=== PATIENT | male | born 1945 | race Caucasian/White ===

== ENCOUNTER 2021-04-25 09:54 | Emergency (ER) | payer MEDICARE, SELFPAY ==
--- NOTE | ~2021-04-25 | CT_ITS ---
CT/CT abdomen pelvis wo con IMPRESSION: Mild to moderate right-sided hydroureteronephrosis secondary to a 2 mm calculus within the distal right ureter. Fleischner guidelines were followed. EXAMINATION: CT ABDOMEN AND PELVIS WITHOUT CONTRAST CLINICAL INFORMATION: 76-year-old male with right lower quadrant pain. COMPARISON: None TECHNIQUE: Multidetector volumetric imaging was performed from the superior aspect of the liver through the pubic symphysis. Sagittal and coronal reformatted images were obtained on the technologist's workstation. This CT examination was performed using dose optimization techniques as appropriate, variously including the following: *Automated exposure control *Adjustment of mA and/or kV according to patient size (this includes techniques or standardized protocols for targeted exams where dose is matched to indication/reason for exam; i.e. extremities or head) *Use of iterative reconstruction technique DLP: 605 mGy-cm FINDINGS: visualized lung bases demonstrate mild dependent atelectasis. There is 1.3 cm cystic focus within the posterior left lower lobe. Coronary artery calcifications are present. The liver demonstrates normal size, contour and attenuation. The gallbladder is normal in appearance. The pancreas, spleen and adrenal glands are unremarkable. There is mild to moderate right-sided hydroureteronephrosis secondary to a 2 mm calculus within the distal right ureter. There is mild right-sided perinephric stranding. No other renal calculi are present within the right or left kidney. There is no left-sided hydronephrosis. Small hiatal hernia. Normal caliber loops of small and large bowel. Normal appendix. Normal caliber abdominal aorta which demonstrates moderate atherosclerotic disease. No retroperitoneal lymphadenopathy. The bladder is decompressed but grossly unremarkable. The prostate gland is mildly enlarged measuring 5.2 cm in maximum transverse dimension. There is no gross free pelvic fluid. Small fat-containing left inguinal hernia. No inguinal lymphadenopathy. No acute osseous abnormality.
[2021-04-25 10:01] VITALS: BP 157/105; PULSE 94; RESP 20; TEMP 35.6; O2SAT 100; BMI 26.6
--- NOTE | 2021-04-25 10:05 | ECG_ITS ---
Test Reason : dehydration Blood Pressure : / mmHG Vent. Rate : 087 BPM Atrial Rate : 087 BPM P-R Int : 166 ms QRS Dur : 062 ms QT Int : 370 ms P-R-T Axes : 068 028 044 degrees QTc Int : 445 ms Normal sinus rhythm with sinus arrhythmia Low voltage QRS Borderline ECG When compared with ECG of 24-MAY-2010 09:04, Vent. rate has increased BY 29 BPM Referred By: Adele Maldonado Electronically Signed By:ELIZABETH RICE MD
--- NOTE | 2021-04-25 10:23 | ED_ITS ---
HPI - Abdominal Pain General Chief Complaint: Abdominal Pain Stated Complaint: abd, n/v Time Seen by Provider: 04/25/21 10:05 Source: patient and EMS Mode of arrival: EMS Limitations: no limitations History of Present Illness HPI narrative: 76-year-old male came in for evaluation of abdominal pain. Abdominal pain started at 04:00 woke the patient up from sleep, pain is in right lower quadrant with no radiation described as constant severe 10/10 pain associated with nausea and vomiting no diarrhea, patient declined seeing blood in the urine, no dysuria, no urinary frequency. No aggravating or relieving factor, never had similar pain in the past. No history of kidney stones, no past surgical history. Past medical history significant for depression and hypertension and prostatic enlargement. Related Data Previous Rx's Medication Instructions Recorded ondansetron 4 mg disintegrating 4 mg PO BEDTIME PRN 3 Days #10 tab 04/25/21 tablet oxycodone 5 mg tablet 5 mg PO Q8H PRN #10 tab 04/25/21 Allergies Allergy/AdvReac Type Severity Reaction Status Date / Time No Known Allergies Allergy Unverified 11/22/19 17:14 Review of Systems Review of Systems All other systems are reviewed and are negative Constitutional: Reports as per HPI and Reports no additional constitutional complaints Eyes: Reports as per HPI and Reports no additional eye complaints Reports system reviewed and no additional complaints, except as documented Cardiovascular: Reports as per HPI and Reports no additional cardiovascular complaints Respiratory: Reports as per HPI and Reports no additional respiratory complaints Gastrointestinal: Reports as per HPI and Reports no additional gastrointestinal complaints Genitourinary: Reports no additional female genitourinary complaints Musculoskeletal: Reports no additional musculoskeletal complaints Skin/Breast: Reports system reviewed and no additional complaints, except as docu Psychiatric: Reports no additional psychiatric complaints Endocrine: Reports no additional endocrine complaints Hematologic/Lymphatic: Reports no additional hematologic/lymphatic complaints Allergic/Immunologic: Reports no additional allergic/immunologic complaints Reports system reviewed and no additional complaints, except as documented and Reports Abnormal speech present [facility] Social History Social History Advance Directives: Yes Advance Directives Information Provided: No Advance Directives on File: No Physical Exam ED Vital Signs: Vital Signs - 24 hr 04/25/21 10:01 04/25/21 10:50 Temperature 96.1 F L Pulse Rate 94 87 Respiratory Rate 20 20 Blood Pressure 157/105 H 155/88 H Pulse Oximetry 100 100 BMI result Body Mass Index 26.6 Vital signs have been reviewed as appeared to be correct. Blood pressure eleva jose angel. Heart rate normal. Respiration rate normal. Temperature normal. Oxygen saturation normal. Appearance: Alert. Oriented X3. acute distress due to severe right-sided abd ominal pain. Head: Normal external exam. Normocephalic. Atraumatic. No Leslie signs noted. No raccoon eyes noted Eyes: PERRLA. EOMI. Conjunctiva and sclera normal. Eyelids normal. ENT: TM's Normal. Pharynx normal. Uvula midline. Moist mucous membranes. No trismus noted. No drooling noted. No muffled voice noted. Neck: Normal inspection. Neck supple. FROM. No adenopathy. Thyroid Normal. No m eningeal signs. No neck mass noted. CVS: Normal heart rate and rhythm. Heart sound normal. No murmurs noted. Pulses normal throughout. Respiratory: No respiratory distress. Painless inspiration. Breath sounds normal. No wheezes/rales/rhonchi noted. Chest nontender. No accessory muscle usage noted or decreased air movement noted. Abdomen: Soft and nontender. Bowel sounds normal in all 4 quadrants. No distention noted. No organomegaly noted. No visible injury noted. Back: No CVA tenderness. Full range of motion noted. Skin: Skin warm and dry. Normal skin color. Normal skin turgor. No r ashes/lesions/lacerations noted. Extremities: No lower extremity edema. Extremities exhibit normal range of motion. Extremities nontender. Neuro: Oriented X 3. Cranial nerve exam: II-XII are grossly intact No motor deficit. No sensory deficit. Reflexes normal. Course Course Course Narrative: Assessment and plan. 76-year-old male came in for abdominal pain and, physical exam/CT of the abdomen pelvis consistent with kidney stone renal. Patient now is more after was given morphine and Toradol in the emergency department, urine does not appear infected infected, instructed to drink plenty of fluid, will discharge the patient on pain medication and antinausea medication with follow-up with urologist. MDM - Abdominal Pain Lab Data Attestation: I reviewed the patient's lab results. Result diagrams: 04/25/21 11:09 04/25/21 11:09 Labs: Lab Results 04/25/21 04/25/21 04/25/21 Range/Units 11:09 11:09 11:09 WBC 9.7 (4.8-10.8) X10*3/uL RBC 5.20 (4.60-5.80) X10*6/uL Hgb 15.4 (14.0-18.0) g/dl Hct 45.8 (42.0-52.0) % MCV 88.1 (80.0-98.0) fL MCH 29.6 (27.0-33.0) pg MCHC 33.6 (31.0-36.0) g/dl RDW 13.1 (11.0-16.0) % Plt Count 248 (160-400) X10*3/uL MPV 9.0 L (9.4-12.4) fL Immature Gran % (Auto) 0.4 (0.0-0.4) % Neut % (Auto) 86.6 H (45-73) % Lymph % (Auto) 8.4 L (20-40) % [place] % (Auto) 3.9 (2-11) % Eos % (Auto) 0.3 (0-4) % Baso % (Auto) 0.4 (0-2) % Lymph # (Auto) 0.8 L (1.2-4.9) X10*3/uL [place] # (Auto) 0.4 (0.1-1.2) X10*3/uL Eos # (Auto) 0.0 (0.0-0.4) X10*3/uL Baso # (Auto) 0.0 (0.0-0.2) X10*3/uL Abs Immat Gran (auto) 0.04 H (0.00-0.03) X10*3/uL Absolute Neuts (auto) 8.4 H (2.0-8.3) x10*3/uL Absolute Nucleated RBC 0.000 (0.0-0.012) X10*3/uL Nucleated RBC % (auto) 0.0 (0.0-0.2) /100WBC Sodium 138 (135-145) mmol/L Potassium 4.9 (3.3-5.1) mmol/L Chloride 107 (96-108) mmol/L Carbon Dioxide 18 L (22-29) mmol/L Anion Gap 18 (12-20) BUN 21 H (9-16) mg/dL Creatinine 1.37 (0.5-1.4) mg/dL Estim Creat Clear Calc 50.3 Estimated GFR 51 Random Glucose 125 H (60-115) mg/dL Calcium 9.4 (8.4-10.2) mg/dL Magnesium 1.9 (1.6-2.6) mg/dL Total Bilirubin 0.5 (0.0-1.0) mg/dL Direct Bilirubin 0.2 (0.0-0.5) mg/dL AST 16 (5-37) U/L ALT 17 (0-40) U/L Alkaline Phosphatase 65 (39-117) U/L Troponin I High Sens < 3.5 (<3.5-35.0) ng/L B-Natriuretic Peptide (<100) pg/mL Total Protein 6.7 (6.5-8.0) g/dL Albumin 4.3 (3.5-5.0) g/dL Lipase 31 (8-78) U/L Urine Color Urine Appearance Urine pH (5.0-8.0) Ur Specific [place] (1.005-1.025) Urine Protein (NEG-TRACE) MG/DL Urine Glucose (UA) (NEG) MG/DL Urine Ketones (NEG) MG/DL Urine Blood (NEG) Urine Nitrite (NEG) Ur Leukocyte Esterase (NEG) Urine RBC (0) /HPF Urine WBC (0-4) /HPF Ur Squamous Epith Cells /LPF Urine Bacteria /LPF Urine Mucus /LPF COVID-19 ([place]) (Negative) COVID-19 Clin Com 04/25/21 04/25/21 04/25/21 Range/Units 11:09 11:09 12:03 WBC (4.8-10.8) X10*3/uL RBC (4.60-5.80) X10*6/uL Hgb (14.0-18.0) g/dl Hct (42.0-52.0) % MCV (80.0-98.0) fL MCH (27.0-33.0) pg MCHC (31.0-36.0) g/dl RDW (11.0-16.0) % Plt Count (160-400) X10*3/uL MPV (9.4-12.4) fL Immature Gran % (Auto) (0.0-0.4) % Neut % (Auto) (45-73) % Lymph % (Auto) (20-40) % [place] % (Auto) (2-11) % Eos % (Auto) (0-4) % Baso % (Auto) (0-2) % Lymph # (Auto) (1.2-4.9) X10*3/uL [place] # (Auto) (0.1-1.2) X10*3/uL Eos # (Auto) (0.0-0.4) X10*3/uL Baso # (Auto) (0.0-0.2) X10*3/uL Abs Immat Gran (auto) (0.00-0.03) X10*3/uL Absolute Neuts (auto) (2.0-8.3) x10*3/uL Absolute Nucleated RBC (0.0-0.012) X10*3/uL Nucleated RBC % (auto) (0.0-0.2) /100WBC Sodium (135-145) mmol/L Potassium (3.3-5.1) mmol/L Chloride (96-108) mmol/L Carbon Dioxide (22-29) mmol/L Anion Gap (12-20) BUN (9-16) mg/dL Creatinine (0.5-1.4) mg/dL Estim Creat Clear Calc Estimated GFR Random Glucose (60-115) mg/dL Calcium (8.4-10.2) mg/dL Magnesium (1.6-2.6) mg/dL Total Bilirubin (0.0-1.0) mg/dL Direct Bilirubin (0.0-0.5) mg/dL AST (5-37) U/L ALT (0-40) U/L Alkaline Phosphatase (39-117) U/L Troponin I High Sens (<3.5-35.0) ng/L B-Natriuretic Peptide 42 (<100) pg/mL Total Protein (6.5-8.0) g/dL Albumin (3.5-5.0) g/dL Lipase (8-78) U/L Urine Color YELLOW Urine Appearance CLEAR Urine pH 8.5 H (5.0-8.0) Ur Specific [place] 1.015 (1.005-1.025) Urine Protein NEG (NEG-TRACE) MG/DL Urine Glucose (UA) NEG (NEG) MG/DL Urine Ketones NEG (NEG) MG/DL Urine Blood 1+ H (NEG) Urine Nitrite NEG (NEG) Ur Leukocyte Esterase NEG (NEG) Urine RBC 1-4 (0) /HPF Urine WBC 0 (0-4) /HPF Ur Squamous Epith Cells TRACE /LPF Urine Bacteria NONE /LPF Urine Mucus TRACE /LPF COVID-19 ([place]) Negative (Negative) COVID-19 Clin Com See Note Imaging Data CT scan - abdomen: Attestation: I personally reviewed and interpreted this imaging study as follows: Radiologist's impression: Mild to moderate right-sided hydroureteronephrosis secondary to a 2 mm calculus within the distal right ureter.? ? ECG Data Attestation: I personally reviewed and interpreted this ECG as follows: Interpretation: Normal sinus rhythm at 80 70 beats per minutes, normal intervals, no ST-T changes. Discharge Plan Discharge Clinical Impression: Calculus of kidney Patient Disposition: Home, Self-Care Instructions: Kidney Stones (ED) Additional Instructions: Drink plenty of fluids. Use anti nausea medication and pain medication as prescribed. Make your own appointment with the urologist. Return if worsening of symptoms. Prescriptions: New oxycodone 5 mg tablet 5 mg PO Q8H PRN (Reason: pain) Qty: 10 0RF ondansetron 4 mg tablet,disintegrating 4 mg PO BEDTIME PRN (Reason: nausea and vomiting) 3 Days Qty: 10 0RF Referrals: Mendoza Santoyo MD [Physician] - 2 days
[2021-04-25] MEDS: Morphine Sulfate 2 MG/ML CARTRIDGE IVPUSH (10:26)
[2021-04-25] MEDS: 0.9 % Sodium Chloride 1,000 ML 999 ML IV (10:27)
--- NOTE | 2021-04-25 10:39 | PC.NURSE ---
Pt arrives by amb cc 11/14 RLQ abdominal pain. pt very tense and restless during triage. MD notified. Pain meds administered per MAY. Pt provided with call ortega. belongings within reach.
[2021-04-25 10:50] VITALS: BP 155/88; PULSE 87; RESP 20; O2SAT 100
[2021-04-25 11:15] LABS: MANUAL DIFF FLAG NO
[2021-04-25 11:17] LABS: Basophils Percent Auto 0.4 % (0-2); Eosinophils Percent Auto 0.3 % (0-4); Hematocrit 45.8 % (42.0-52.0); Hemoglobin 15.4 g/dl (14.0-18.0); Imm Gran Abs Auto 0.04 X10*3/uL (0.00-0.03); Imm Gran Pct Auto 0.4 % (0.0-0.4); Lymphocytes Absolute Auto 0.8 X10*3/uL (1.2-4.9); Lymphocytes Percent Auto 8.4 % (20-40); Mean Corpuscular HGB Conc 33.6 g/dl (31.0-36.0); Mean Corpuscular Hemoglobin 29.6 pg (27.0-33.0); Mean Corpuscular Volume 88.1 fL (80.0-98.0); Monocytes Absolute Auto 0.4 X10*3/uL (0.1-1.2); Monocytes Percent Auto 3.9 % (2-11); Neutrophils Absolute Auto 8.4 x10*3/uL (2.0-8.3); Neutrophils Percent Auto 86.6 % (45-73); Platelet Count 248 X10*3/uL (160-400); Red Cell Distribution Width 13.1 % (11.0-16.0); White Blood Count 9.7 X10*3/uL (4.8-10.8)
[2021-04-25 11:32] LABS: COVID-19 Test Negative (Negative)
[2021-04-25 11:38] LABS: Alanine Aminotransferase 17 U/L (0-40); Albumin Level 4.3 g/dL (3.5-5.0); Alkaline Phosphatase 65 U/L (39-117); Anion Gap 18 (12-20); Aspartate Amino Transferase 16 U/L (5-37); Bilirubin Direct 0.2 mg/dL (0.0-0.5); Bilirubin Total 0.5 mg/dL (0.0-1.0); Blood Urea Nitrogen 21 mg/dL (9-16); Calcium 9.4 mg/dL (8.4-10.2); Carbon Dioxide 18 mmol/L (22-29); Chloride 107 mmol/L (96-108); Creatinine Clr Calc Pharmacy 50.3; Estimated Glomerular Filt Rate 51; Glucose Random 125 mg/dL (60-115); Lipase 31 U/L (8-78); Magnesium 1.9 mg/dL (1.6-2.6); Potassium 4.9 mmol/L (3.3-5.1); Sodium 138 mmol/L (135-145); Total Protein 6.7 g/dL (6.5-8.0)
[2021-04-25 11:39] LABS: B Type Natriuretic Peptide 42 pg/mL (<100); Troponin-I High Sensitivity < 3.5 ng/L (<3.5-35.0)
[2021-04-25 12:12] LABS: Appearance Urine CLEAR; Color Urine YELLOW; Glucose Urine UA NEG (NEG); Leukocyte Esterase Urine NEG (NEG); Nitrite Urine NEG (NEG); PH 8.5 (5.0-8.0); Specific Gravity - Urine 1.015 (1.005-1.025); UACC Culture Trigger NO; Urine Blood 1+ (NEG); Urine Ketones NEG (NEG); Urine Protein NEG (NEG-TRACE)
[2021-04-25 12:21] LABS: Mucus Urine TRACE /LPF; Squamous Epithelial Cell Urine TRACE /LPF; WBC Urine 0 /HPF (0-4)
== END 2021-04-25 13:27 | disposition home or self-care (01) ==
PROVIDERS: Emergency Provider Emergency Medicine
DX: N13.2 Hydronephrosis with renal and ureteral calculous obstruction (principal); R11.2 Nausea with vomiting, unspecified; Z20.822 Contact with and (suspected) exposure to COVID-19
CPT/HCPCS: 36415; 74176; 80048; 80076; 81001; 83690; 83735; 83880; 84484; 85025; 87635; 93005; 96361; 96374; 99284; 99285; J2270

== ENCOUNTER 2021-04-27 10:48 | Inpatient (IN) | payer MEDICARE, SELFPAY ==
--- NOTE | ~2021-04-27 | US_ITS ---
EXAMINATION: US RETROPERITONEAL LIMITED (RENAL ONLY) CLINICAL INFORMATION: Evaluate ureteric jets. COMPARISON: CT abdomen and pelvis 04/25/2021 TECHNIQUE: Limited imaging through the bladder was performed. FINDINGS: Right ovary ureteral jet is not visualized. Normal left ureteral jet is seen. The bladder is distended without wall thickening or echogenic calculi. US/US retroperitoneal limited IMPRESSION: Normal left ureteral jet. The right ureteral jet is absent. CT 04/25/2021 revealed a right distal ureteral stone.
--- NOTE | ~2021-04-27 | US_ITS ---
EXAMINATION: US ABDOMEN LIMITED CLINICAL INFORMATION: 2 mm calculus right distal ureter.. COMPARISON: Ultrasound retroperitoneum 04/27/[address] abdomen 04/25/2021 TECHNIQUE: Real-time imaging of the right upper quadrant abdominal viscera. FINDINGS: PANCREAS: Normal. The right kidney measures 11.0 6.4 x 6.0 seen. There is normal cortical thickness. There is mild hydronephrosis and a dilated proximal ureter.. US/US abdomen limited IMPRESSION: Mild right hydronephrosis and proximal dilated right ureter from a known right distal ureteral stone seen on previous CT abdominal exam 04/25/2021.
[2021-04-27 10:52] VITALS: BP 167/105; BP 184/100; PULSE 72; PULSE 78; RESP 18; TEMP 36.9; O2SAT 100; O2SAT 95; BMI 25.1
--- NOTE | 2021-04-27 11:09 | ED_ITS ---
HPI - Abdominal Pain General Chief Complaint: Abdominal Pain Stated Complaint: RLQ PAIN X'S 3 HOURS Time Seen by Provider: 04/27/21 10:59 Source: patient Mode of arrival: ambulatory Limitations: no limitations History of Present Illness HPI narrative: Patient comes emergency room complaining of right lower quadrant pain. Patient was seen here 2 days ago, came complaining of right lower quadrant pain. CT scan showed a 2 mm stone in the distal right ureter. Patient states that after he left the hospital, he was feeling well. However, he has been having intermittent right lower quadrant pain. Patient denies dysuria or hematuria, no fever chills, no flank pain. Patient states the pain is the same that has been recurring for the last couple of days. Related Data Home Medications Medication Instructions Recorded Confirmed metoprolol tartrate 25 mg tablet 0.5 tab PO BID 04/27/21 04/27/21 rosuvastatin 40 mg tablet 1 tab PO DAILY 04/27/21 tamsulosin 0.4 mg capsule 2 cap PO DAILY 04/27/21 venlafaxine 150 mg 1 cap PO DAILY 04/27/21 capsule,extended release 24 hr Previous Rx's Medication Instructions Recorded ondansetron 4 mg disintegrating 4 mg PO BEDTIME PRN 3 Days #10 tab 04/25/21 tablet oxycodone 5 mg tablet 5 mg PO Q8H PRN #10 tab 04/25/21 Allergies Allergy/AdvReac Type Severity Reaction Status Date / Time No Known Allergies Allergy Unverified 11/22/19 17:14 Review of Systems Review of Systems Constitutional : No Weight loss, No Fever, No Chills, No Night Sweats, No Fatigue, No Malaise ENT/Mouth : No Hearing loss, No Ear Pain, No Nasal Congestion, No Sinus Pain, No Hoarseness, No sore throat, No Rhinorrhea, No Swallowing Difficulty Eyes: No Eye Pain, No Swelling, No Redness, No Foreign Body, No Discharge, No Vision Changes Cardiovascular : No Chest Pain, No SOB, No Dyspnea on Exertion, No Orthopnea, No Edema, No Palpitations Respiratory : No Cough, No Sputum, No Wheezing, No Smoke Exposure, No Dyspnea Gastrointestinal : Complaining of Nausea, No Vomiting, No Diarrhea, No Constipation, complaining right lower quadrant, No Hematochezia, No Melena Genitourinary : no irregular bleeding, No Dysuria, No Urinary Frequency, No Hematuria, No Urinary Incontinence, No Urgency, No Flank Pain, No Urinary Flow Changes, No Hesitancy Musculoskeletal : No joint pain, No Myalgias, No Joint Swelling Skin : No Skin Lesions, No rash Neuro : No Weakness, No Numbness, No Paresthesias, No Loss of Consciousness, No Dizziness, No Headache Psych : No Anxiety/Panic, No Depression, No SI/HI/AH/VH, No Social Issues, Heme/Lymph: No Bruising, No Bleeding,No Lymphadenopathy Endocrine : No Polyuria, No Polydipsia, No Temperature Intolerance [facility] Past Medical History Medical History (Updated 04/27/21 @ 16:35 by Pamela Chavez MD) Kidney stone Social History Social History Advance Directives: Yes Advance Directives Information Provided: No Advance Directives on File: No Physical Exam ED Vital Signs: Vital Signs - 24 hr 04/27/21 10:52 04/27/21 13:53 Temperature 98.5 F 97.9 F Pulse Rate 72 91 Respiratory Rate 18 17 Blood Pressure 167/105 H 151/103 H Pulse Oximetry 100 99 BMI result Body Mass Index 25.1 Const Other: Appearance: Alert. Oriented X3. No acute distress. Eyes: Pupils equal, round and reactive to light. ENT: Pharynx normal. Neck: Normal inspection. Neck supple. No lymph nodes noted. No crepitus CVS: Normal heart rate and rhythm. Pulses normal. Normal S1 and S2 Respiratory: No respiratory distress. Breath sounds normal. No Wheezing. No rales Abdomen: Soft , pain to palpation in right lower quadrant, mild rebound, no guarding. No CVA tenderness Skin: Skin warm and dry. Normal skin color. Normal skin turgor. Extremities: No lower extremity edema. No lower extremity edema. No Lacerations. No Rash Neuro: Oriented X 3. No motor deficit. No sensory deficit. Moving all extermities. No slurred speech. Course Course Course Narrative: Patient receiving IV fluids, Toradol, Zofran. All the labs are pending. Patient's creatinine is elevated. Retroperitoneal ultrasound pending. I discussed the labs with the patient. Patient states that he has not been vomiting at all, only feeling nauseous, no diarrhea. After 2 L of normal saline, patient's creatinine did improve but not enough. Creatinine now 1.95. I discussed the patient with nurse practitioner Ben, patient being admitted for RASHAD MDM - Abdominal Pain Lab Data Result diagrams: 04/27/21 11:32 04/27/21 15:19 Labs: Lab Results 04/27/21 04/27/21 04/27/21 Range/Units 11:32 11:32 11:34 WBC 13.0 H (4.8-10.8) X10*3/uL RBC 4.77 (4.60-5.80) X10*6/uL Hgb 14.3 (14.0-18.0) g/dl Hct 43.7 (42.0-52.0) % MCV 91.6 (80.0-98.0) fL MCH 30.0 (27.0-33.0) pg MCHC 32.7 (31.0-36.0) g/dl RDW 13.7 (11.0-16.0) % Plt Count 203 (160-400) X10*3/uL MPV 9.1 L (9.4-12.4) fL Immature Gran % (Auto) 1.0 H (0.0-0.4) % Neut % (Auto) 89.3 H (45-73) % Lymph % (Auto) 4.0 L (20-40) % [place] % (Auto) 5.3 (2-11) % Eos % (Auto) 0.2 (0-4) % Baso % (Auto) 0.2 (0-2) % Lymph # (Auto) 0.5 L (1.2-4.9) X10*3/uL [place] # (Auto) 0.7 (0.1-1.2) X10*3/uL Eos # (Auto) 0.0 (0.0-0.4) X10*3/uL Baso # (Auto) 0.0 (0.0-0.2) X10*3/uL Abs Immat Gran (auto) 0.13 H (0.00-0.03) X10*3/uL Absolute Neuts (auto) 11.6 H (2.0-8.3) x10*3/uL Absolute Nucleated RBC 0.000 (0.0-0.012) X10*3/uL Nucleated RBC % (auto) 0.0 (0.0-0.2) /100WBC Sodium 139 (135-145) mmol/L Potassium 4.4 (3.3-5.1) mmol/L Chloride 104 (96-108) mmol/L Carbon Dioxide 27 (22-29) mmol/L Anion Gap 12 (12-20) BUN 24 H (9-16) mg/dL Creatinine 2.23 H (0.5-1.4) mg/dL Estim Creat Clear Calc 30.9 Estimated GFR 29 Random Glucose 96 (60-115) mg/dL Calcium 9.3 (8.4-10.2) mg/dL Total Bilirubin 0.5 (0.0-1.0) mg/dL Direct Bilirubin 0.2 (0.0-0.5) mg/dL AST 15 (5-37) U/L ALT 11 (0-40) U/L Alkaline Phosphatase 70 (39-117) U/L Total Protein 6.5 (6.5-8.0) g/dL Albumin 4.2 (3.5-5.0) g/dL Urine Color YELLOW Urine Appearance CLEAR Urine pH 6.0 (5.0-8.0) Ur Specific [place] 1.020 (1.005-1.025) Urine Protein NEG (NEG-TRACE) MG/DL Urine Glucose (UA) NEG (NEG) MG/DL Urine Ketones NEG (NEG) MG/DL Urine Blood 1+ H (NEG) Urine Nitrite NEG (NEG) Ur Leukocyte Esterase NEG (NEG) Urine RBC 1-4 (0) /HPF Urine WBC 1-4 (0-4) /HPF Ur Squamous Epith Cells 1+ /LPF Urine Bacteria NONE /LPF 04/27/21 Range/Units 15:19 WBC (4.8-10.8) X10*3/uL RBC (4.60-5.80) X10*6/uL Hgb (14.0-18.0) g/dl Hct (42.0-52.0) % MCV (80.0-98.0) fL MCH (27.0-33.0) pg MCHC (31.0-36.0) g/dl RDW (11.0-16.0) % Plt Count (160-400) X10*3/uL MPV (9.4-12.4) fL Immature Gran % (Auto) (0.0-0.4) % Neut % (Auto) (45-73) % Lymph % (Auto) (20-40) % [place] % (Auto) (2-11) % Eos % (Auto) (0-4) % Baso % (Auto) (0-2) % Lymph # (Auto) (1.2-4.9) X10*3/uL [place] # (Auto) (0.1-1.2) X10*3/uL Eos # (Auto) (0.0-0.4) X10*3/uL Baso # (Auto) (0.0-0.2) X10*3/uL Abs Immat Gran (auto) (0.00-0.03) X10*3/uL Absolute Neuts (auto) (2.0-8.3) x10*3/uL Absolute Nucleated RBC (0.0-0.012) X10*3/uL Nucleated RBC % (auto) (0.0-0.2) /100WBC Sodium 140 (135-145) mmol/L Potassium 4.7 (3.3-5.1) mmol/L Chloride 110 H (96-108) mmol/L Carbon Dioxide 25 (22-29) mmol/L Anion Gap 10 L (12-20) BUN 21 H (9-16) mg/dL Creatinine 1.95 H (0.5-1.4) mg/dL Estim Creat Clear Calc 35.3 Estimated GFR 34 Random Glucose 94 (60-115) mg/dL Calcium 8.0 L D (8.4-10.2) mg/dL Total Bilirubin (0.0-1.0) mg/dL Direct Bilirubin (0.0-0.5) mg/dL AST (5-37) U/L ALT (0-40) U/L Alkaline Phosphatase (39-117) U/L Total Protein (6.5-8.0) g/dL Albumin (3.5-5.0) g/dL Urine Color Urine Appearance Urine pH (5.0-8.0) Ur Specific [place] (1.005-1.025) Urine Protein (NEG-TRACE) MG/DL Urine Glucose (UA) (NEG) MG/DL Urine Ketones (NEG) MG/DL Urine Blood (NEG) Urine Nitrite (NEG) Ur Leukocyte Esterase (NEG) Urine RBC (0) /HPF Urine WBC (0-4) /HPF Ur Squamous Epith Cells /LPF Urine Bacteria /LPF Imaging Data Retroperitoneum ultrasound: Radiologist's impression: TECHNIQUE: Limited imaging through the bladder was performed. FINDINGS: Right ovary ureteral jet is not visualized. Normal left ureteral jet is seen. The bladder is distended without wall thickening or echogenic calculi. US/US retroperitoneal limited IMPRESSION: Normal left ureteral jet. ? The right ureteral jet is absent. CT 04/25/2021 revealed a right distal ureteral stone. Discharge Plan Discharge Clinical Impression: Acute kidney injury Patient Disposition: Admitted As Inpatient Prescriptions: No Action oxycodone 5 mg tablet 5 mg PO Q8H PRN (Reason: pain) Qty: 10 0RF ondansetron 4 mg tablet,disintegrating 4 mg PO BEDTIME PRN (Reason: nausea and vomiting) 3 Days Qty: 10 0RF venlafaxine 150 mg capsule,extended release 24hr 1 cap PO DAILY 0RF tamsulosin 0.4 mg capsule 2 cap PO DAILY 0RF rosuvastatin 40 mg tablet 1 tab PO DAILY 0RF metoprolol tartrate 25 mg tablet 0.5 tab PO BID 0RF
[2021-04-27] MEDS: 0.9 % Sodium Chloride 1,000 ML 999 ML IVCONT ×2 (11:29→14:05)
[2021-04-27] MEDS: ondansetron HCL 4 MG/2 ML VIAL IVPUSH (11:30)
[2021-04-27] MEDS: Ketorolac Tromethamine 30 MG/ML VIAL IVPUSH (11:30)
[2021-04-27 11:38] LABS: MANUAL DIFF FLAG NO
[2021-04-27 11:42] LABS: Basophils Percent Auto 0.2 % (0-2); Eosinophils Percent Auto 0.2 % (0-4); Hematocrit 43.7 % (42.0-52.0); Hemoglobin 14.3 g/dl (14.0-18.0); Imm Gran Abs Auto 0.13 X10*3/uL (0.00-0.03); Lymphocytes Absolute Auto 0.5 X10*3/uL (1.2-4.9); Mean Corpuscular HGB Conc 32.7 g/dl (31.0-36.0); Mean Corpuscular Volume 91.6 fL (80.0-98.0); Mean Platelet Volume 9.1 fL (9.4-12.4); Monocytes Absolute Auto 0.7 X10*3/uL (0.1-1.2); Monocytes Percent Auto 5.3 % (2-11); Neutrophils Absolute Auto 11.6 x10*3/uL (2.0-8.3); Neutrophils Percent Auto 89.3 % (45-73); Platelet Count 203 X10*3/uL (160-400); Red Blood Count 4.77 X10*6/uL (4.60-5.80); Red Cell Distribution Width 13.7 % (11.0-16.0)
[2021-04-27 11:43] LABS: Appearance Urine CLEAR; Color Urine YELLOW; Glucose Urine UA NEG (NEG); Leukocyte Esterase Urine NEG (NEG); Nitrite Urine NEG (NEG); UACC Culture Trigger NO; Urine Blood 1+ (NEG); Urine Ketones NEG (NEG); Urine Protein NEG (NEG-TRACE)
[2021-04-27 12:01] LABS: Alanine Aminotransferase 11 U/L (0-40); Albumin Level 4.2 g/dL (3.5-5.0); Alkaline Phosphatase 70 U/L (39-117); Anion Gap 12 (12-20); Aspartate Amino Transferase 15 U/L (5-37); Bilirubin Direct 0.2 mg/dL (0.0-0.5); Bilirubin Total 0.5 mg/dL (0.0-1.0); Blood Urea Nitrogen 24 mg/dL (9-16); Calcium 9.3 mg/dL (8.4-10.2); Carbon Dioxide 27 mmol/L (22-29); Chloride 104 mmol/L (96-108); Creatinine Clr Calc Pharmacy 30.9; Estimated Glomerular Filt Rate 29; Glucose Random 96 mg/dL (60-115); Potassium 4.4 mmol/L (3.3-5.1); Sodium 139 mmol/L (135-145); Total Protein 6.5 g/dL (6.5-8.0)
[2021-04-27 13:19] LABS: Squamous Epithelial Cell Urine 1+ /LPF
[2021-04-27 13:53] VITALS: BP 151/103; PULSE 91; RESP 17; TEMP 36.6; O2SAT 99
[2021-04-27 15:49] LABS: Anion Gap 10 (12-20); Blood Urea Nitrogen 21 mg/dL (9-16); Carbon Dioxide 25 mmol/L (22-29); Chloride 110 mmol/L (96-108); Creatinine Clr Calc Pharmacy 35.3; Estimated Glomerular Filt Rate 34; Glucose Random 94 mg/dL (60-115); Potassium 4.7 mmol/L (3.3-5.1); Sodium 140 mmol/L (135-145)
--- NOTE | 2021-04-27 16:40 | PHA.MEDREC ---
Pharmacy Consult ? Medication Reconciliation Pharmacy has completed the medication reconciliation. Patient was recently prescribed oxycodone and ondansetron on 04/25 from [facility], but it looks like it hasn't been filled yet per external pharmacy fill history.
[2021-04-27 17:04] VITALS: BP 159/91; PULSE 79; O2SAT 99
--- NOTE | 2021-04-27 17:10 | P.HPHOSP_ITS ---
History of Present Illness Date of Service: 04/27/21 <Melany Contreras NP - Last Filed: 04/27/21 17:22> Attending physician on admission: Marco Eric <Melany Conterras NP - Last Filed: 04/27/21 17:22> Chief Complaint: Abd pain <Melany Contreras NP - Last Filed: 04/27/21 17:22> 76 year old man presenting with left upper quadrant abdominal pain that started 2 days ago. He denied fever, chills, nausea, vomiting, diarrhea he did say that he was 20) morning and he did have 1 episode vomiting. Denied any pain with urination bloody urine. CT scan showed 2 mm stone in the distal right ureter. Abdominal CT on April 25 showed mild to moderate right-sided hydroureter nephrosis secondary to calculus. Patient denied any history of renal calculi in the past. He was not noted to have any fever he did have mild leukocytosis. Creatinine was initially 2.23 it did go down some after IV fluids to 1.95. Urinalysis not showing infection. He was given normal saline, Toradol, Zofran and Tylenol. He will be admitted for further management and treatment of RASHAD secondary to 2 mm renal calculi. <Melany Contreras NP - Last Filed: 04/27/21 17:22> Review of Systems Review of Systems: Denies any recent fever chills or decrease in appetite respiratory denies any shortness of breath coverage production cardiovascular denies chest pain gastrointestinal denies any dysphagia abdominal pain nausea vomiting or diarr hea genitourinary denies any dysuria frequency or hematuria musculoskeletal denies any joint pain or swelling neuropsych denies any weakness or seizures all other systems reviewed are negative <Melany Contreras NP - Last Filed: 04/27/21 17:22> [facility] Medical History: Medical History Kidney stone <Melany Contreras NP - Last Filed: 04/27/21 17:22> Social History: Social History service: Yes Current occupational status: retired <Melany Contreras NP - Last Filed: 04/27/21 17:22> Meds Allergies/Adverse reactions: Allergies Allergy/AdvReac Type Severity Reaction Status Date / Time No Known Allergies Allergy Verified 05/13/21 15:25 <Melany Contreras NP - Last Filed: 04/27/21 17:22> Active Medications: Current Medications Acetaminophen (Acetaminophen 325 Mg Tablet) 650 mg PO Q6H PRN PRN Reason: Pain, Mild (Pain Scale 1-3) Heparin Sodium (Porcine) (Heparin Sodium,Porcine 5,000 Unit/Ml Vial) 5,000 unit SUBCUT Q12H EB Ondansetron HCl (Ondansetron Hcl 4 Mg/2 Ml Vial) 4 mg IVPUSH Q8H PRN PRN Reason: Nausea and Vomiting Sodium Chloride (0.9 % Sodium Chloride Flush 3 Ml Syringe) 3 ml IVFLUSH QSHIFT EB <Melany Contreras NP - Last Filed: 04/27/21 17:22> Home medications: Home Medications Medication Instructions Recorded Confirmed Last Taken Type metoprolol tartrate 25 mg tablet 0.5 tab PO BID 04/27/21 04/27/21 Unknown History rosuvastatin 40 mg tablet 1 tab PO DAILY 04/27/21 04/27/21 Unknown History venlafaxine 150 mg 1 cap PO DAILY 04/27/21 04/27/21 Unknown History capsule,extended release 24 hr venlafaxine 75 mg capsule,extended 75 mg PO DAILY 05/13/21 Unknown History release 24 hr <Melany Contreras NP - Last Filed: 04/27/21 17:22> Physical Exam Vital Signs and Narrative: Vital Signs: Last Vital Signs Temp 97.9 F 04/27/21 13:53 Pulse 91 04/27/21 13:53 Resp 17 04/27/21 13:53 BP 151/103 H 04/27/21 13:53 Pulse Ox 99 04/27/21 13:53 BMI result Body Mass Index 25.1 <Melany Contreras NP - Last Filed: 04/27/21 17:22> Appearing in no acute distress head is normocephalic atraumatic eyes pupils are PERRLA sclera is anicteric mouth throat mucous membranes are intact and moist neck is supple no lymphadenopathy, no JVD noted lung sounds are clear to auscultation heart regular rate rhythm, clear S1, S2 positive bowel sounds, abdomen is soft, nontender neuro patient is alert x3, no focal deficits <Melany Contreras NP - Last Filed: 04/27/21 17:22> Results Labs CBC and Chem 7: : 04/28/21 05:55 04/28/21 05:55 <Melany Contreras NP - Last Filed: 04/27/21 17:22> Labs: Laboratory Results - last 24 hr 04/27/21 04/27/21 04/27/21 11:32 11:32 11:34 MCV 91.6 MCH 30.0 MCHC 32.7 RDW 13.7 Plt Count 203 MPV 9.1 L Immature Gran % (Auto) 1.0 H Neut % (Auto) 89.3 H Lymph % (Auto) 4.0 L [place] % (Auto) 5.3 Eos % (Auto) 0.2 Baso % (Auto) 0.2 Lymph # (Auto) 0.5 L [place] # (Auto) 0.7 Eos # (Auto) 0.0 Baso # (Auto) 0.0 Abs Immat Gran (auto) 0.13 H Absolute Neuts (auto) 11.6 H Absolute Nucleated RBC 0.000 Nucleated RBC % (auto) 0.0 Anion Gap 12 Estim Creat Clear Calc 30.9 Estimated GFR 29 Random Glucose 96 Calcium 9.3 Total Bilirubin 0.5 Direct Bilirubin 0.2 AST 15 ALT 11 Alkaline Phosphatase 70 Total Protein 6.5 Albumin 4.2 Urine Color YELLOW Urine Appearance CLEAR Urine pH 6.0 Ur Specific [place] 1.020 Urine Protein NEG Urine Glucose (UA) NEG Urine Ketones NEG Urine Blood 1+ H Urine Nitrite NEG Ur Leukocyte Esterase NEG Urine RBC 1-4 Urine WBC 1-4 Ur Squamous Epith Cells 1+ Urine Bacteria NONE 04/27/21 15:19 MCV MCH MCHC RDW Plt Count MPV Immature Gran % (Auto) Neut % (Auto) Lymph % (Auto) [place] % (Auto) Eos % (Auto) Baso % (Auto) Lymph # (Auto) [place] # (Auto) Eos # (Auto) Baso # (Auto) Abs Immat Gran (auto) Absolute Neuts (auto) Absolute Nucleated RBC Nucleated RBC % (auto) Anion Gap 10 L Estim Creat Clear Calc 35.3 Estimated GFR 34 Random Glucose 94 Calcium 8.0 L D Total Bilirubin Direct Bilirubin AST ALT Alkaline Phosphatase Total Protein Albumin Urine Color Urine Appearance Urine pH Ur Specific [place] Urine Protein Urine Glucose (UA) Urine Ketones Urine Blood Urine Nitrite Ur Leukocyte Esterase Urine RBC Urine WBC Ur Squamous Epith Cells Urine Bacteria <Melany Contreras NP - Last Filed: 04/27/21 17:22> Imaging Radiologist's Impressions: Impressions Retroperitoneum Ultrasound 04/27/21 14:36 IMPRESSION: Normal left ureteral jet. The right ureteral jet is absent. CT 04/25/2021 revealed a right distal ureteral stone. <Melany Contreras NP - Last Filed: 04/27/21 17:22> Assessment and Plan (1) Acute kidney injury: Status: Resolved <Melany Contreras NP - Last Filed: 04/27/21 17:22> Plan 76-year-old man admitted with RASHAD likely secondary to 2 mm renal calculi. Acute RASHAD secondary to renal calculi with mild hydronephrosis. Urology consultation IV fluids Avoid nephrotoxins Pain management NPO after midnight Follow BMP Leukocytosis. Reactive secondary to renal calculi and hydronephrosis Hypertension Continue metoprolol History of coronary artery disease Continue metoprolol and statin BPH Continue tamsulosin DVT prophylaxis with heparin Attending Dr. Eric Full code <Melany oCntreras NP - Last Filed: 04/27/21 17:22> 76-year-old man admitted with RASHAD likely secondary to 2 mm renal calculi. Acute RASHAD secondary to renal calculi with mild hydronephrosis. Urology consultation IV fluids Avoid nephrotoxins Pain management NPO after midnight Follow BMP Leukocytosis. Reactive secondary to renal calculi and hydronephrosis Hypertension Continue metoprolol History of coronary artery disease Continue metoprolol and statin BPH Continue tamsulosin DVT prophylaxis with heparin Attending Dr. Eric Full code Chart reviewed patient examined discussed with Ms. Contreras. Agree with history and physical and assessment and plan as documented <Marco Eric, DO - Last Filed: 05/20/21 17:57> Quality Stroke Does the patient have a stroke diagnosis?: No <Melany Contreras NP - Last Filed: 04/27/21 17:22> VTE Prior VTE?: No <Melany Contreras NP - Last Filed: 04/27/21 17:22> VTE Risk Level:: Medical - moderate - high <Mealny Contreras NP - Last Filed: 04/27/21 17:22> VTE Device Contraindication: Treatment Not Indicated <Melany Contreras NP - Last Filed: 04/27/21 17:22> VTE Drug Contraindication: N/A - Med Ordered <Melany Contreras NP - Last Filed: 04/27/21 17:22>
[2021-04-27 17:13] LABS: COVID-19 Test Negative (Negative)
[2021-04-27] MEDS: 0.9 % Sodium Chloride 1,000 ML 100 ML IVCONT (17:48)
[2021-04-27] MEDS: Heparin Sodium,Porcine 5,000 UNIT/ML VIAL 5000 UNIT SUBCUT (17:48)
[2021-04-27 19:55] VITALS: BP 119/77; PULSE 79; RESP 18; TEMP 36.6; O2SAT 99
[2021-04-27 21:20] VITALS: BP 132/74; PULSE 90; RESP 16; TEMP 37.1; O2SAT 98
[2021-04-27] MEDS: Metoprolol Tartrate 12.5 MG HALFTAB PO (21:22)
[2021-04-28 00:15] VITALS: BP 127/74; PULSE 75; RESP 16; TEMP 37.2; O2SAT 98
[2021-04-28 02:36] VITALS: BP 156/94; PULSE 74; RESP 16; TEMP 36.2; O2SAT 99
[2021-04-28] MEDS: 0.9 % Sodium Chloride 1,000 ML 100 ML IVCONT (03:39)
[2021-04-28 04:00] VITALS: BP 131/70; PULSE 63; RESP 16; TEMP 36.7; O2SAT 98
[2021-04-28 06:13] VITALS: BMI 26.2
--- NOTE | 2021-04-28 06:15 | PC.NURSE ---
Patient transferred from main ER to overflow unit. Patient ambulated from stretcher to bathroom and then to bed - steady gait. Patient denies pain. Patient educated about being NPO after midnight for planned lithotripsy - right kidney stone. Heparin held for procedure.
[2021-04-28 06:22] LABS: MANUAL DIFF FLAG NO
[2021-04-28 06:26] LABS: Basophils Percent Auto 0.5 % (0-2); Eosinophils Absolute Auto 0.1 X10*3/uL (0.0-0.4); Eosinophils Percent Auto 0.9 % (0-4); Hematocrit 38.9 % (42.0-52.0); Hemoglobin 12.5 g/dl (14.0-18.0); Imm Gran Abs Auto 0.01 X10*3/uL (0.00-0.03); Imm Gran Pct Auto 0.2 % (0.0-0.4); Lymphocytes Absolute Auto 0.9 X10*3/uL (1.2-4.9); Lymphocytes Percent Auto 14.4 % (20-40); Mean Corpuscular HGB Conc 32.1 g/dl (31.0-36.0); Mean Corpuscular Hemoglobin 29.9 pg (27.0-33.0); Mean Corpuscular Volume 93.1 fL (80.0-98.0); Mean Platelet Volume 9.5 fL (9.4-12.4); Monocytes Absolute Auto 0.6 X10*3/uL (0.1-1.2); Monocytes Percent Auto 8.5 % (2-11); Neutrophils Absolute Auto 4.9 x10*3/uL (2.0-8.3); Neutrophils Percent Auto 75.5 % (45-73); Platelet Count 165 X10*3/uL (160-400); Red Blood Count 4.18 X10*6/uL (4.60-5.80); Red Cell Distribution Width 13.6 % (11.0-16.0); White Blood Count 6.5 X10*3/uL (4.8-10.8)
[2021-04-28 07:04] LABS: Anion Gap 11 (12-20); Blood Urea Nitrogen 16 mg/dL (9-16); Calcium 8.6 mg/dL (8.4-10.2); Carbon Dioxide 26 mmol/L (22-29); Chloride 110 mmol/L (96-108); Creatinine Clr Calc Pharmacy 51.5; Estimated Glomerular Filt Rate 52; Glucose Random 84 mg/dL (60-115); Potassium 4.2 mmol/L (3.3-5.1); Sodium 143 mmol/L (135-145)
[2021-04-28] MEDS: Tamsulosin HCL 0.4 MG CAPSULE 0.8 MG PO (09:18)
[2021-04-28] MEDS: Atorvastatin Calcium 80 MG TABLET PO (09:18)
[2021-04-28] MEDS: Venlafaxine HCl ER 150 MG CAP.ER.24H PO (09:18)
[2021-04-28] MEDS: Metoprolol Tartrate 12.5 MG HALFTAB PO (09:18)
[2021-04-28 09:25] VITALS: BP 158/96; PULSE 85; RESP 16; O2SAT 96
--- NOTE | 2021-04-28 10:44 | MHC.CM.PN ---
PT REPORTS HE LIVES ALONE AND IS INDEPENDENT WITH CARE PT REPORTS HE HAS NO DME AND NO SERVICES PT SAYS HE IS A AND WAS SERVICE CONNECTED BUT STOPPED USING THEM PT REPORTS HIS PCP IS OMAR HAMLIN AND HE HAS A HCP COMPLETED NAMING HIS FRIEND, KYLE COOK HIS AGENT. PT REPORTS HE IS VACCINATED WITH PFIZER X 3. IMM DELIVERED, COPY SENT TO [facility] A COPY OF PTS VACCINATION CARD WAS ALSO SENT TO [facility] DATES: 06/19/20 07/11/20 02/02/21 CURRENT DC PLAN IS HOME WITH NO SERVICES. PT WILL ARRANGE TRANSPORT
--- NOTE | 2021-04-28 12:18 | PC.NURSE ---
Pt A&Ox3, no complaints of pain, no difficulty urinating. Pt urinating clear yellow urine, NPO since 2025. Call ortega within reach, fluids infusing as per MAR orders. Awaiting lithotropsy at this time. Will continue to monitor.
--- NOTE | 2021-04-28 13:14 | P.CNUR_ITS ---
History of Present Illness Consult details Consult date: 04/28/21 Narrative: Niles is a pleasant 76-year-old male Admitted to hospital with right flank pain and Imaging on Tuesday that had showed a small stone Creatinine was initially elevated Re presentation on Tuesday night with similar recurrent pain Creatinine up to 2.2 now down to 1.3 Has passed stone Follow-up outpatient with imaging in 2-4 weeks Recommend Flomax for 2 weeks to assist with spasm Review of Systems Constitutional: Constitutional: Reports as per HPI and Reports no additional constitutional complaints Cardiovascular: Cardiovascular: Reports as per HPI and Reports no additional cardiovascular complaints Respiratory: Respiratory: Reports as per HPI and Reports no additional respiratory complaints Gastrointestinal: Gastrointestinal: Reports as per HPI and Reports no additional gastrointestinal complaints Genitourinary: Genitourinary: Reports as per HPI Musculoskeletal: Musculoskeletal: Reports no additional musculoskeletal com plaints and Reports as per HPI Neurologic: Reports system reviewed and no additional complaints, except as documented and Reports as per HPI PMFSH Past Medical History Medical History (Updated 04/28/21 @ 13:13 by Mendoza Santoyo MD) Kidney stone Social History Social History Advance Directives: Yes Advance Directives Information Provided: No Advance Directives on File: No service: Yes Current occupational status: retired Meds Allergies Allergy/AdvReac Type Severity Reaction Status Date / Time No Known Allergies Allergy Unverified 11/22/19 17:14 Active Medications: Current Medications Acetaminophen (Acetaminophen 325 Mg Tablet) 650 mg PO Q6H PRN PRN Reason: Pain, Mild (Pain Scale 1-3) Atorvastatin Calcium (Atorvastatin Calcium 80 Mg Tablet) 80 mg PO DAILY [facility] Last Admin: 04/28/21 09:18 Dose: 80 mg Documented by: Heparin Sodium (Porcine) (Heparin Sodium,Porcine 5,000 Unit/Ml Vial) 5,000 unit SUBCUT Q12H [facility] Last Admin: 04/28/21 04:14 Dose: Not Given Documented by: Sodium Chloride (Ns) 1,000 mls @ 100 mls/hr IVCONT .Q10H [facility] Last Admin: 04/28/21 03:39 Dose: 100 mls/hr Documented by: Metoprolol Tartrate (Metoprolol Tartrate 12.5 Mg Halftab) 12.5 mg PO BID [facility]; Protocol Last Admin: 04/28/21 09:18 Dose: 12.5 mg Documented by: Ondansetron HCl (Ondansetron Hcl 4 Mg/2 Ml Vial) 4 mg IVPUSH Q8H PRN PRN Reason: Nausea and Vomiting Oxycodone HCl (Oxycodone Hcl Immed Release 5 Mg Tablet) 5 mg PO Q6H PRN PRN Reason: Opiate Withdrawal Sodium Chloride (0.9 % Sodium Chloride Flush 3 Ml Syringe) 3 ml IVFLUSH QSHIFT [facility] Last Admin: 04/28/21 09:18 Dose: Not Given Documented by: Tamsulosin HCl (Tamsulosin Hcl 0.4 Mg Capsule) 0.8 mg PO DAILY [facility] Last Admin: 04/28/21 09:18 Dose: 0.8 mg Documented by: Venlafaxine HCl (Venlafaxine Hcl Er 150 Mg Cap.Er.24h) 150 mg PO DAILY [facility] Last Admin: 04/28/21 09:18 Dose: 150 mg Documented by: Home Medications Medication Instructions Recorded Confirmed Last Taken Type metoprolol tartrate 25 mg tablet 0.5 tab PO BID 04/27/21 04/27/21 Unknown History rosuvastatin 40 mg tablet 1 tab PO DAILY 04/27/21 04/27/21 Unknown History tamsulosin 0.4 mg capsule 2 cap PO DAILY 04/27/21 04/27/21 Unknown History venlafaxine 150 mg 1 cap PO DAILY 04/27/21 04/27/21 Unknown History capsule,extended release 24 hr Physical Exam Vital Signs: Vital Signs: Last Vital Signs Temp 98.1 F 04/28/21 04:00 Pulse 85 04/28/21 09:25 Resp 16 04/28/21 09:25 BP 158/96 H 04/28/21 09:25 Pulse Ox 96 04/28/21 09:25 BMI result Body Mass Index 26.2 Const: General: cooperative, healthy appearing, comfortable and no acute distress Orientation/consciousness: patient oriented x3 HENMT: Face and sinus: Yes normal facial exam Mouth: moist mucous membranes Neck: Neck: Yes normal visual inspection, Yes full ROM and Yes trachea midline Chest: Chest palpation & inspection: normal inspection of the chest Resp: Effort & Inspection: normal respiratory effort, able to speak in com plete sentences and no respiratory distress GI: Inspection: Yes normal to inspection Back/Spine/Pelvis: Cervical Spine: normal cervical lordosis Thoracic/Lumbar Spine: thoracic and lumbar spine normal to inspection Skin: General skin exam: no rashes or lesions noted Neuro: General: patient oriented x3, tone normal and moves all extremities Extrem: General: Yes normal to inspection and Yes capillary refill normal Results Labs Result diagrams: 04/28/21 05:55 04/28/21 05:55 Labs: Abnormal lab results 04/27/21 04/28/21 04/28/21 Range/Units 15:19 05:55 05:55 RBC 4.18 L (4.60-5.80) X10*6/uL Hgb 12.5 L (14.0-18.0) g/dl Hct 38.9 L (42.0-52.0) % Neut % (Auto) 75.5 H (45-73) % Lymph % (Auto) 14.4 L (20-40) % Lymph # (Auto) 0.9 L (1.2-4.9) X10*3/uL Chloride 110 H 110 H (96-108) mmol/L Anion Gap 10 L 11 L (12-20) BUN 21 H (9-16) mg/dL Creatinine 1.95 H (0.5-1.4) mg/dL Calcium 8.0 L D (8.4-10.2) mg/dL Short CBC 04/28/21 Range/Units 05:55 WBC 6.5 (4.8-10.8) X10*3/uL Hgb 12.5 L (14.0-18.0) g/dl Hct 38.9 L (42.0-52.0) % Plt Count 165 (160-400) X10*3/uL BMP 04/27/21 04/28/21 15:19 05:55 Sodium 140 143 Potassium 4.7 4.2 Chloride 110 H 110 H Carbon Dioxide 25 26 BUN 21 H 16 Creatinine 1.95 H 1.34 Calcium 8.0 L D 8.6 D Urine 04/27/21 Range/Units 11:34 Urine Color YELLOW Urine Appearance CLEAR Urine pH 6.0 (5.0-8.0) Ur Specific [place] 1.020 (1.005-1.025) Urine Protein NEG (NEG-TRACE) MG/DL Urine Glucose (UA) NEG (NEG) MG/DL All other labs normal. Assessment and Plan (1) Nephrolithiasis: Status: Acute Plan Two week follow-up ultrasound Procedures Date of Service Date of Service: 04/28/21
--- NOTE | 2021-04-28 14:01 | PM.DS ---
DS: Providers Provider Date of Service: 04/28/21 <Melany Contreras NP - Last Filed: 04/29/21 14:12> Date of admission: 04/27/21 17:04 <Melany Contreras NP - Last Filed: 04/29/21 14:12> Primary care physician: Elvira Page MD <Melany Contreras NP - Last Filed: 04/29/21 14:12> Consults: 04/27/21 17:09 Consult to Urology Routine Consulting Provider: Mendoza Santoyo Reason for consultation: rashad, hydronephrosis Has provider been notified: No <Melany Contreras NP - Last Filed: 04/29/21 14:12> Attending physician on discharge: Ihsan Pierson <Melany Contreras NP - Last Filed: 04/29/21 14:12> Discharging clinician: Melany Contreras <Melany Contreras NP - Last Filed: 04/29/21 14:12> DS: Diagnosis Discharge Diagnosis (1) Hydronephrosis: Status: Acute <Melany Contreras NP - Last Filed: 04/29/21 14:12> (2) Acute kidney injury: Status: Acute <Melany Contreras NP - Last Filed: 04/29/21 14:12> DS: Summary Hospital Course Hospital Course: 76 year old man presenting with left upper? quadrant abdominal pain that started 2 days ago.? He denied fever, chills, nausea, vomiting, diarrhea he did say that he was 20) morning and he did have 1 episode vomiting.? Denied any pain with urination bloody urine.? CT scan showed 2 mm stone in the distal right ureter.? Abdominal CT on April 25 showed mild to moderate right-sided hydroureter nephrosis secondary to calculus.? Patient denied any history of renal calculi in the past.? He was not noted to have any fever he did have mild leukocytosis.? Creatinine was initially 2.23 it did go down some after IV fluids to 1.95.? Urinalysis not showing infection.? He was given normal saline, Toradol, Zofran and Tylenol.? He will be admitted for further management and treatment of RASHAD secondary to 2 mm renal calculi. <Melany Contreras NP - Last Filed: 04/29/21 14:12> Time Spent with Patient Time attestation: Total time spent providing and/or coordinating discharge services: <Melany Contreras NP - Last Filed: 04/29/21 14:12> Discharge coordination time: Greater than 30 minutes <Melany Contreras NP - Last Filed: 04/29/21 14:12> Quality: Stroke Does the patient have a stroke diagnosis?: No <Melany Contreras NP - Last Filed: 04/29/21 14:12> Physical Exam Vital Signs: Vital Signs: Last Vital Signs Temp 98.1 F 04/28/21 04:00 Pulse 85 04/28/21 09:25 Resp 16 04/28/21 09:25 BP 158/96 H 04/28/21 09:25 Pulse Ox 96 04/28/21 09:25 BMI result Body Mass Index 26.2 <Melany Contreras NP - Last Filed: 04/29/21 14:12> DS: Data Data Completed and Pending Labs on day of discharge: Laboratory Results - last 24 hr 04/27/21 04/27/21 04/28/21 15:19 16:52 05:55 WBC 6.5 RBC 4.18 L Hgb 12.5 L Hct 38.9 L MCV 93.1 MCH 29.9 MCHC 32.1 RDW 13.6 Plt Count 165 MPV 9.5 Immature Gran % (Auto) 0.2 Neut % (Auto) 75.5 H Lymph % (Auto) 14.4 L [place] % (Auto) 8.5 Eos % (Auto) 0.9 Baso % (Auto) 0.5 Lymph # (Auto) 0.9 L [place] # (Auto) 0.6 Eos # (Auto) 0.1 Baso # (Auto) 0.0 Abs Immat Gran (auto) 0.01 Absolute Neuts (auto) 4.9 Absolute Nucleated RBC 0.000 Nucleated RBC % (auto) 0.0 Sodium 140 Potassium 4.7 Chloride 110 H Carbon Dioxide 25 Anion Gap 10 L BUN 21 H Creatinine 1.95 H Estim Creat Clear Calc 35.3 Estimated GFR 34 Random Glucose 94 Calcium 8.0 L D COVID-19 ([place]) Negative COVID-19 Clin Com See Note 04/28/21 05:55 WBC RBC Hgb Hct MCV MCH MCHC RDW Plt Count MPV Immature Gran % (Auto) Neut % (Auto) Lymph % (Auto) [place] % (Auto) Eos % (Auto) Baso % (Auto) Lymph # (Auto) [place] # (Auto) Eos # (Auto) Baso # (Auto) Abs Immat Gran (auto) Absolute Neuts (auto) Absolute Nucleated RBC Nucleated RBC % (auto) Sodium 143 Potassium 4.2 Chloride 110 H Carbon Dioxide 26 Anion Gap 11 L BUN 16 Creatinine 1.34 Estim Creat Clear Calc 51.5 Estimated GFR 52 Random Glucose 84 Calcium 8.6 D COVID-19 ([place]) COVID-19 Clin Com <Melany Contreras NP - Last Filed: 04/29/21 14:12> Discharge Plan Discharge Anticipated Discharge Date/Time: 04/28/21 13:36 <Melany Contreras NP - Last Filed: 04/29/21 14:12> Patient Disposition: Home, Self-Care <Melany Contreras NP - Last Filed: 04/29/21 14:12> Discharge Diagnosis: RASHAD Hydronephrosis renal calculi <Melany Contreras NP - Last Filed: 04/29/21 14:12> Referrals: Mendoza Santoyo MD [Physician] - 1 Week Elvira Page MD [Primary Care Provider] - 1 Week <Melany Contreras NP - Last Filed: 04/29/21 14:12> Discharge Medications: New tamsulosin 0.4 mg Capsule 0.8 mg PO DAILY Qty: 60 0RF Continued oxycodone 5 mg tablet 5 mg PO Q8H PRN (Reason: pain) Qty: 10 0RF ondansetron 4 mg tablet,disintegrating 4 mg PO BEDTIME PRN (Reason: nausea and vomiting) 3 Days Qty: 10 0RF Label Comments: Looks like it was prescribed on 04/25 but never filled venlafaxine 150 mg capsule,extended release 24hr 1 cap PO DAILY 0RF rosuvastatin 40 mg tablet 1 tab PO DAILY 0RF metoprolol tartrate 25 mg tablet 0.5 tab PO BID 0RF Discontinued tamsulosin 0.4 mg capsule 2 cap PO DAILY 0RF <Melany Contreras NP - Last Filed: 04/29/21 14:12> Discharge Orders: Discharge Order (Routine); Ordered 04/28/21 Ordered By: Melany Contreras <Melany Contreras NP - Last Filed: 04/29/21 14:12> Diet: advance to usual diet <Melany Contreras NP - Last Filed: 04/29/21 14:12> Activity on Discharge: As tolerated <Melany Contreras NP - Last Filed: 04/29/21 14:12> Stand Alone Forms: Patient Portal Discharge page <Melany Contreras NP - Last Filed: 04/29/21 14:12> Care Plan Goals: Resolution of symptoms <Melany Contreras NP - Last Filed: 04/29/21 14:12> Health Concerns: RASHAD Hydronephrosis renal calculi <Melany Contreras NP - Last Filed: 04/29/21 14:12> Plan of Treatment: Follow up with urologist in 2 weeks for repeat ultrasound <Melany Contreras NP - Last Filed: 04/29/21 14:12> Assessment: See discharge summary <Melany Contreras NP - Last Filed: 04/29/21 14:12> Discharge Date/Time: 04/28/21 14:30 <Melany Contreras NP - Last Filed: 04/29/21 14:12>
== END 2021-04-28 14:30 | disposition home or self-care (01) | DRG 694 ==
LOC: HO.ED 16:35 → HO.EDOVER 17:52
PROVIDERS: Admitting Provider Nurse Practitioner Acute Care; Emergency Provider Emergency Medicine; PCP Family Medicine; Visit Provider Nurse Practitioner Acute Care
DX: N13.2 Hydronephrosis with renal and ureteral calculous obstruction (principal); N17.9 Acute kidney failure, unspecified; D72.829 Elevated white blood cell count, unspecified; I25.10 Atherosclerotic heart disease of native coronary artery without angina pectoris; N40.0 Benign prostatic hyperplasia without lower urinary tract symptoms; Z20.822 Contact with and (suspected) exposure to COVID-19; Z79.899 Other long term (current) drug therapy
CPT/HCPCS: 36415; 76705; 76775; 80048; 80076; 81001; 81003; 85025; 87635; 96361; 96374; 96375; 99285; J1885; J2405

== ENCOUNTER 2021-05-08 11:26 | Outpatient (REF) | payer MEDICARE, SELFPAY ==
--- NOTE | ~2021-05-08 | US_ITS ---
EXAMINATION: US RETROPERITONEAL LIMITED (RENAL ONLY) CLINICAL INFORMATION: Calculus of kidney. COMPARISON: Ultrasound abdomen limited 04/28/2021. Ultrasound retroperitoneal limited 04/27/2021. CT abdomen and pelvis 04/25/2021. TECHNIQUE: Real-time imaging of the kidneys. FINDINGS: RIGHT KIDNEY: 9.7 x 5.8 x 6.5 cm (SAG x AP x TRV). The kidney is normal in size, contour, and echogenicity. Renal cortical thickness is normal. No calculi or focal parenchymal lesions. No hydronephrosis. The previously seen right hydronephrosis on prior CT abdomen and pelvis on 04/25/2021 and prior ultrasound on 04/28/2021 has resolved. LEFT KIDNEY: 10.4 x 4.8 x 4.4 cm (SAG x AP x TRV). The kidney is normal in size, contour, and echogenicity. Renal cortical thickness is normal. No calculi or focal parenchymal lesions. No hydronephrosis. US/US renal BI IMPRESSION: Presumed passage of previously seen distal right ureteral calculus with resolution of the previously seen hydronephrosis. No renal calculi are seen at this time.
== END 2021-05-08 11:27 | disposition home or self-care (01) ==
LOC: HO.HMGCX 11:26
PROVIDERS: PCP Nurse Practitioner Family; Visit Provider Urology
DX: N20.0 Calculus of kidney (principal); N17.9 Acute kidney failure, unspecified
CPT/HCPCS: 76775

== ENCOUNTER → 2021-05-13 15:23 | Outpatient (BNVA) | payer MEDICARE, SELFPAY | PROVIDERS: PCP Family Medicine; Visit Provider Urology | DX: N20.0 Calculus of kidney (principal) | CPT/HCPCS: 99202 ==

== ENCOUNTER 2021-10-05 10:31 | Outpatient (REF) | payer MEDICARE, SELFPAY ==
--- NOTE | ~2021-10-05 | US_ITS ---
EXAMINATION: US RETROPERITONEAL LIMITED (RENAL ONLY) CLINICAL INFORMATION: Calculus of kidney. COMPARISON: Renal ultrasound 05/08/2021 and 04/27/2021. TECHNIQUE: Real-time imaging of the kidneys. FINDINGS: RIGHT KIDNEY: 9.8 x 5.2 x 5.4 cm (SAG x AP x TRV). The kidney is normal in size, contour, and echogenicity. Renal cortical thickness is normal. No calculi or focal parenchymal lesions. No hydronephrosis. LEFT KIDNEY: 10.1 x 4.7 x 4.4 cm (SAG x AP x TRV). The kidney is normal in size, contour, and echogenicity. Renal cortical thickness is normal. No calculi or focal parenchymal lesions. No hydronephrosis. US/US renal BI IMPRESSION: No hydronephrosis or nephrolithiasis.
== END 2021-10-05 10:32 | disposition home or self-care (01) ==
LOC: HO.HMGCX 10:31
PROVIDERS: Visit Provider Urology
DX: N20.0 Calculus of kidney (principal)
CPT/HCPCS: 76775

== ENCOUNTER → 2021-11-17 10:42 | Outpatient (BNVA) | payer MEDICARE, SELFPAY | PROVIDERS: PCP Family Medicine; Visit Provider Urology | DX: N20.0 Calculus of kidney (principal) | CPT/HCPCS: Q3014 ==

== ENCOUNTER 2022-11-05 08:55 | Outpatient (REF) | payer MEDICARE, SELFPAY ==
--- NOTE | ~2022-11-05 | US_ITS ---
EXAMINATION: US RETROPERITONEAL LIMITED (RENAL ONLY) CLINICAL INFORMATION: Calculus of kidney. COMPARISON: Bilateral renal ultrasound dated 10/05/2021 and 05/08/2021. CT abdomen and pelvis without contrast dated 04/25/2021. TECHNIQUE: Real-time imaging of the kidneys. FINDINGS: RIGHT KIDNEY: 10.3 x 5.3 x 6.1 cm (SAG x AP x TRV). The kidney is normal in size, contour, and echogenicity. Renal cortical thickness is normal. No calculi or focal parenchymal lesions. No hydronephrosis. LEFT KIDNEY: 10.7 x 5.0 x 4.7 cm (SAG x AP x TRV). The kidney is normal in size, contour, and echogenicity. Renal cortical thickness is normal. No renal calculi or focal parenchymal lesions. There is mild hydronephrosis. US/US renal BI IMPRESSION: 1. No renal mass or calculus is seen bilaterally. 2. There is mild left hydronephrosis. No right hydronephrosis is seen.
== END 2022-11-05 08:56 | disposition home or self-care (01) ==
LOC: HO.HMGCX 08:55
PROVIDERS: PCP Nurse Practitioner Family; Visit Provider Urology
DX: N20.0 Calculus of kidney (principal)
CPT/HCPCS: 76775

== ENCOUNTER 2022-11-18 11:19 | Outpatient (AMB) | payer BC, SELFPAY ==
--- NOTE | 2022-11-18 11:32 | A.OFFVIS_ITS ---
Intake Intake Visit Reasons: 1Y US(set) Intake Note: Patient is present for Follow Up Ultrasound Urology Med: Tamsulosin Antibiotic Allergy: None Blood Thinner: None Pharmacy: [facility] Allergies No Known Allergies Allergy (Verified 11/18/22 11:35) Medication List - Last Reconciled 11/18/22 by Mendoza Santoyo MD lisinopril 10 mg PO QPM metoprolol tartrate 0.5 tabs PO BID ondansetron 4 mg PO BEDTIME PRN 3 days oxycodone 5 mg PO Q8H PRN rosuvastatin 1 tab PO DAILY tamsulosin 0.8 mg (2 x 0.4 mg) PO DAILY venlafaxine ER 1 cap PO DAILY venlafaxine ER 75 mg PO DAILY HPI HPI Comments History of Present Illness Details Niles is a pleasant male. He is a patient of Dr. Page. He seen for the following urologic conditions - nephrolithiasis Discussed results Encourage fluids 12 month follow-up imaging Has been drinking lemonade made with tiera Nephrolithiasis Seen in emergency room April 2021 Right-sided flank pain Imaging - 04/28 CT scan with right hydroureterone phrosis to small distal stone - 05/26 ultrasound resolution of hydroure teronephrosis and no stone seen - 11/26 ultrasound no stone seen - 11/27 renal ultrasound no stone seen [facility] Medical History Kidney stone Social History service: Yes Current occupational status: retired Review of Systems Const Denies chills and Denies fever(s) Card Reports no additional complaints and Denies syncope Resp Denies cough GI Denies abdominal pain and Denies heartburn Reports as per HPI and Denies change in libido Neuro Denies syncope Psych Denies change in libido Endo Denies change in libido Physical Exam Const General: cooperative, healthy appearing, comfortable and no acute distress Orientation/consciousness: patient oriented x3 HEENT Face and sinus: Yes normal facial exam Mouth: moist mucous membranes Neck Neck: Yes normal visual inspection, Yes full ROM and Yes trachea midline Chest Chest palpation & inspection: normal inspection of the chest Resp Effort & Inspection: normal respiratory effort, able to speak in complete sentences and no respiratory distress GI Inspection: Yes normal to inspection Back/Spine/Pelvis Cervical Spine: normal cervical lordosis Thoracic/Lumbar Spine: thoracic and lumbar spine normal to inspection Skin General skin exam: no rashes or lesions noted Neuro General: patient oriented x3, gait normal, tone normal and moves all extremities Extrem General: Yes normal to inspection and Yes capillary refill normal Assessment & Plan Assessment & Plan (1) Nephrolithiasis: Code(s): N20.0 - Calculus of kidney Plan Twelve month follow-up imaging Orders: Orders US renal BI 364 Days N20.0 - Calculus of kidney Patient Instructions: Imaging studies, laboratory and physical exam results were discussed and reviewed in detail. No major barriers to patient understanding were identified. An opportunity to ask questions regarding the treatment plan was provided. All questions were answered. The patient expressed understanding and agreement with the above treatment plan. The patient is aware they should contact our office by phone for worsening of their current condition or the appearance of new urologic symptoms. Compliance is encouraged with any medications and followup testing that is ordered. It is a privilege to participate in the urologic care of your patient. If you have any questions or concerns regarding treatment for the above conditions, or other urologic issues, please do not hesitate to contact me. The office telephone contact is [phone]. This note is constructed using voice recognition software. While every effort has been made to ensure accuracy rattlesnake farmer errors may have been included. Yours sincerely, Dr Mendoza Santoyo MD, [facility] - Urology Providers of Expert, Compassionate Care for the Genitourinary System Coding Level of Care Code Est Pt Level 3 (73978) Diagnoses Nephrolithiasis N20.0
== END 2022-11-18 12:03 | disposition home or self-care (01) ==
PROVIDERS: PCP Nurse Practitioner Family; Visit Provider Urology
DX: N20.0 Calculus of kidney (principal)
CPT/HCPCS: 99213

== ENCOUNTER → 2022-11-18 11:19 | Outpatient (BNVA) | payer MEDICARE, SELFPAY | PROVIDERS: Visit Provider Urology ==